=== PATIENT | female | born 1985 | race Caucasian/White ===

== ENCOUNTER 2020-04-18 10:18 | Day surgery (SDC) | payer BC, SELFPAY ==
--- NOTE | 2020-04-16 13:57 | HP.PCM_ITS ---
History and Physical Date of Admission: 04/18/20 PATIENT NAME: Jena Escalante. : 1985 ? DIAGNOSIS:? Superior mediastinal mass - Hodgkin's lymphoma - need for portacath for chemotherapy \ HPI:?This is a 35-year-old female presenting with 1 year history of unexplained cough and neck swelling. ?She has noticed increased swelling in her neck for the last several months. ?She has no hoarseness, dysphagia. ?She has a chronic nonproductive cough but no shortness of breath or chest pain. ?She has no fever, chills, night sweats, or unexplained weight loss. ?She has history of chronic fatigue. ?She does not smoke or drink alcohol. ?She denies frequent or recurrent infections. ?She denied double vision, headaches, or muscle weakness.? ? Patient underwent US thryoid on 03/16 which showed?Prominent mass inferior to both lobes of the thyroid possibly lipoma or other fat-containing lesion. ?Other considerations include complex cyst such as a cystic hygroma. ?Hypoechoic hypovascular solid mass also in differential. ?Recommend correlation with contrast-enhanced CT of neck.? ? CT scan of the neck with contrast suggests a thymic mass in the upper mediastinum with involvement of vasculature. ?She was referred to Dr. Faria last week for a needle biopsy of the thymic mass. ?She was seen earlier this week for further evaluation and treatment for possible thymoma or lymphoma. ? Interim history: Biopsy came back as classic Hodgkin lymphoma. Patient had history of coughing and mild dysphagia for close to a year. However, she has no chest pain, shortness of breath or B symptoms. ? ? FINAL DIAGNOSIS Needle core biopsy, neck mass: - Classic Hodgkin lymphoma, nodular sclerosis type. SO/td 04/04/2020 COMMENT Histologic sections demonstrate an abnormal inflammatory infiltrate composed of lymphocytes, eosinophils, histiocytes, and large pleomorphic, multinucleated cells consistent with Hodgkin/Flaco-Dominga cells. Mummified forms are also identified. There is background dense fibrosis. Immunohistochemistry is performed. The large cells are positive for CD30 and weakly positive for PAX5, and negative for CD15, CD45, ALK1, granzyme B, and CD15. CD3 and CD20 highlight scattered small T and B lymphocytes, respectively. The large cells are negative for CD20. BRITT in-situ hybridization is negative. PAST MEDICAL HISTORY Enlarged thyroid ? Obesity (BMI 30.0-34.9) ? Hodgkin's lymphoma ? ? PAST SURGICAL HISTORY ? TUBAL LIGATION ? 2010 Denies history of bone fractures ? ? MEDICATIONS: denies ? ? ALLERGIES: Patient has no known allergies. ? PERSONAL HISTORY: Scial History Tobacco Use ? Smoking status: Never Smoker ? Smokeless tobacco: Never Used Substance Use Topics ? Alcohol use: Not Currently ? ? Frequency: Never ? ? Drinks per session: Patient refused ? ? Binge frequency: Never ? Drug use: Never FAMILY HISTORY ? Cancer Mother ? ? ovarian or cervical - more likely cervical ? Hypertension Father ? ? Cancer Paternal Grandmother ? ? throat ? Diabetes Paternal Grandfather ? ? Diabetes Niece ? ? REVIEW OF SYSTEMS: CONSTITUTIONAL: ?No fevers, chills, nightsweats, or?unintended weight loss?+?mod erate fatigue HEENT: ?Denies frequent or severe heaches, nasal congestion/sinus symptoms, problematic allergy problems. EYES: ?No diplopia or blurry vision. NECK:?Increased swelling CARDIOVASCULAR: ?No chest pain, dyspnea, palpitations, orthopnea, PND, ankle edema. PULM: ?No dyspnea, unexplained cough. GI: ?No dysphagia/odynophagia, problematic reflux, constipation, diarrhea, changes in stool habits, hematochezia, melena. : ?No new urinary complaints, including dysuria, gross hematuria or pyuria. NEURO: ?No new balance problems, peripheral weakness/paresthesias or numbness of concern. No?Myasthenia gravis symptoms. MUSC-SKEL: ?No new joint pain, swelling, or erythema. PSY: ?No concerns regarding depression, anxiety or panic. INTEGUMENTARY: ?No new skin changes (rash, new or changing mole, new growth) ? PHYSICAL EXAMINATION:?35-year-old lady in no acute distress. BP 121/72 Pulse 99 Temp (Src) 97.9 (Temporal) Ht 5' 4.75[Ht verified with Adele Phillips RN[ (1.65m) Wt 178 lb (80.7kg) LMP 02/23/2020 BMI 29.84 kg/(m^2).? HEENT: Head is normocephalic, atraumatic. Sclerae white, conjunctivae pink. PEERL. EOMs are intact. Oropharynx is benign. NECK:?Supple,?enlarged thymic mass in the lower neck. LYMPHATICS: There is no palpable adenopathy in the neck, supraclavicular region, axillae, or groin. LUNGS: Lungs are clear to percussion and auscultation. HEART: Heart is normal without murmurs, gallops, or rubs. ABDOMEN: Soft and nontender without organomegaly. No masses can be palpated. EXTREMITIES: Are without edema. NEUROLOGIC: Exam is physiologic,?cranial nerves II to XII intact. ?No sensorimotor deficits ? ASSESSMENT:?35-year-old female with a lower cervical superior mediastinal mass,?consistent with classic Hodgkin lymphoma.??Clinical stage IIA with bulky disease and anemia. ? PLAN:? Patient is here for portacath placement. The procedure has been explained to her. She has been counseled as to the risks of the procedure, including but not limited to: infection, bleeding, injury to any blood vessels/nerves, thromboses of the blood vessels, line sepsis, injury to the lungs such as hemothorax or pneumothorax, inability to place the portacath, wound infection, non functioning of the port, etc. - she understands. The patient was offered a surgery/procedure. The provider and patient have discussed in detail the risk of exposure to and/or potential harm posed by the COVID-19 virus with having a surgery/procedure at this time versus the risk of delaying the surgery/procedure. It is not possible to know either the risk of delaying the surgery or procedure or chance of getting an infection with perfect accuracy, but a joint decision was made between the patient and the provider to proceed at this time with the scheduled surgery/procedure. She wishes to proceed. I have answered all her questions and she has no further questions.
[2020-04-18] VITALS (8 sets, daily range): BP systolic 109–132; BP diastolic 47–79; PULSE 90–111; RESP 16–18; TEMP 36.9–37.6; O2SAT 96–100; BMI 30.8
[2020-04-18] MEDS: Lactated Ringers 1,000 ML 75 ML IV (10:59)
[2020-04-18] MEDS: Cefazolin 2 GM in 0.9% Normal Saline 100 ML IV (11:47)
[2020-04-18] MEDS: Lidocaine 1% /Epi 1:100 (20ml) 20 ML Vial ×2 (12:04→12:15)
--- NOTE | 2020-04-18 12:26 | OP.PCM_ITS ---
Report of Operation Date of Procedure: 04/18/20 Pre-Operative Diagnosis: Hodgkins lymphoma with large mediastinal mass Post-Operative Diagnosis: same Surgery/Procedure Performed:: attempted access for placement of portacath Description of Surgical Findings:: SVC partial obstruction, could not advance wire into SVC Type of Anesthesia:: Local MAC Anesthesiologist: Keith Rehman Specimen's removed: none Estimated Blood Loss (mL): < 10 ml Fluids Replaced: 700 ml RL Description of Procedure: After informed consent was given, the patient was brought to the Operating Room. Appropriate time out protocol was followed. The patient was then placed in the supine position. The patient was then given IV conscious sedation for anesthesia. The patient?s upper chest and neck were then prepped with a surgical skin preparation and sterile surgical drapes were placed. After proper landmarks were ascertained, the skin at the upper right chest area was then infiltrated with 1% xylocaine with epinephrine. A needle trocar was then inserted into the right subclavian vein and there was good aspiration of venous blood. A wire was then threaded into the needle trocar however, it did not seem to advance well. Under fluoroscopy the wire could not be advanced into the superior vena cava (SVC) despite multiple attempts. Therefore the wire and needle trocar were removed and pressure applied to the area. The ultrasound machine was then used for real time imaging. The US transducer was used to i dentify for the right internal jugular vein. It was visualized. The skin and subcutaneous tissues were infiltrated with local anesthetic. A needle trocar was inserted into the right internal jugular vein via US guidance. There was good aspiration of venous blood. However, once again, under fluoroscopy, it was noted that the wire could not be advanced into the SVC. The wire and needle trocar were removed and pressure applied to the site. An attempt was then made with the left subclavian approach. The skin and subcutaneous tissues of the upper left chest area was infiltrated with local anesthetic. The needle trocar was inserted into the left subclavian vein. There was good aspiration of venous blood. A wire was inserted into the needle trocar and was seen to enter the right subclavian vein under fluoroscopy. Advancing the wire was done under fluoroscopy. With retraction and advancement of the wire, it was noted to be advanced in the right internal jugular vein. Therefore given the above, the mass must be partially occluding the SVC, thus precluding placement of a catheter in this location. At this point the procedure was aborted. Pressure was applied to all attempted insertion sites. Steristrips applied to the needle trocar entrance sites. The patient was brought to the Recovery Room in stable condition - Complications no placement of portacath - Admit VTE Documentation VTE Present on Admission: Yes VTE Mechan Device Prophylaxis: SCD's
--- NOTE | 2020-04-18 12:28 | RAD_ITS ---
We are attempting to reach an attending provider to discuss findings. An addendum with communication details will be sent when the communication is complete. EXAM DESCRIPTION: PORTABLE AP CHEST CLINICAL HISTORY: 35 years Female, Possible pneumothorax, attempted line placement. Possible pneumothorax, attempted line placement. COMPARISON: Previous chest obtained on 08/12/2010 FINDINGS: The thorax is intact. The heart appears to be within normal limits. Now noted is significant widening superior mediastinum. In view of the attempted line placement this most likely represents a large mediastinal hematoma. Arterial injury cannot be completely excluded and a contrast enhanced CT of the chest is recommended for further evaluation.. The lungs appear to be well areated without evidence of pneumonic consolidation or pleural effusion. RAD/CXR for Line Placement IMPRESSION: Marked widening of the superior mediastinum suspicious for a mediastinal hematoma. Because of vascular injury cannot be completely excluded a CT angiogram would be helpful for further evaluation. Electronically Signed: Yaron Foley, at 14:24 EST Tel , Service support ,
--- NOTE | 2020-04-18 12:43 | DCINST_ITS ---
Discharge Diet: No Restrictions Discharge Activity: Return to Normal Activity, May not drive while taking narcotic pain medications. Allergies/Adverse Reactions: Allergies No Known Allergies Allergy (Verified 04/12/20 14:46) Medications to take at Discharge Iron Polysaccharide Complex [Ferrex 150] 150 mg PO BID 04/12/20 Hydrocodone Bitart/Apap 5-325 [[place] 5MG-325MG] 1 tablet PO Q8H PRN PRN 2 Days #6 tablet 04/18/20 The following prescriptions were given: Hydrocodone Bitart/Apap 5-325 [[place] 5MG-325MG] 1 tablet PO Q8H PRN PRN 2 Days #6 tablet PRN Reason: Pain Transmission Status: Sent to [facility] Primary Care Physician: Michael Green MD [Primary Care Provider] - Test Results: Test results from this visit will be discussed in further detail at your follow- up appointment, if applicable.
--- NOTE | 2020-04-18 14:32 | PN_ITS ---
Progress Note I have reviewed the CXR - no evidence of pneumothorax which is what I am concerned about The patient has a known mediastinal mass for which pathology found to be Hodgkin's lymphoma - a chest CT was obtained at [facility] for which the radiologist at [facility] has no access to and therefore cannot compare images. However, I have reviewed the images and compared the present CXR to the chest CT scan obtained at [facility] and there are no changes STROKE Vital Signs/Narrative: Vital Signs Temp Pulse Resp BP Pulse Ox 04/18/20 12:56 98.4 F 92 16 123/56 H 100 04/18/20 12:55 95 16 122/59 H 100 04/18/20 12:50 103 H 16 122/59 H 100 04/18/20 12:45 90 16 115/54 L 100 04/18/20 12:41 105 H 16 109/47 L 100 04/18/20 12:36 98.4 F 111 H 16 130/78 H 100 04/18/20 10:54 99.7 F H 94 16 132/79 H 96
== END 2020-04-18 14:36 | disposition home or self-care (01) ==
LOC: SDC 10:19 → AC 10:20
PROVIDERS: PCP Family Medicine; Referring Provider Surgery; Visit Provider Surgery
PROC: (CPT 36561; principal; 2020-04-18 11:30)
DX: C81.11 Nodular sclerosis Hodgkin lymphoma, lymph nodes of head, face, and neck (principal); D64.9 Anemia, unspecified; E66.9 Obesity, unspecified; Z68.29 Body mass index [BMI] 29.0-29.9, adult; I87.1 Compression of vein
CPT/HCPCS: 00532; 36561; 71045; 77001; J7050; J7120; C1788

== ENCOUNTER → 2020-04-27 08:48 | Outpatient (CLI) | payer BC, SELFPAY ==
[2020-04-18 10:54] VITALS: BMI 30.8
[2020-04-27 08:56] VITALS: BP 115/62; PULSE 86; RESP 14; TEMP 37.2; O2SAT 99; BMI 30.7
== END ==
PROVIDERS: PCP Family Medicine; Visit Provider Internal Medicine Hematology & Oncology
DX: Z45.2 Encounter for adjustment and management of vascular access device (principal)

== ENCOUNTER → 2020-05-12 08:49 | Outpatient (CLI) | payer BC, SELFPAY ==
[2020-04-27 08:56] VITALS: BMI 30.7
== END ==
PROVIDERS: PCP Family Medicine; Referring Provider Internal Medicine Hematology & Oncology; Visit Provider Internal Medicine Hematology & Oncology
DX: Z45.2 Encounter for adjustment and management of vascular access device (principal); C81.90 Hodgkin lymphoma, unspecified, unspecified site

== ENCOUNTER → 2020-05-25 08:59 | Outpatient (CLI) | payer BC, SELFPAY ==
[2020-04-27 08:56] VITALS: BMI 30.7
--- NOTE | 2020-05-25 09:50 | NURSING ---
# 20g 1 Peripheral IV placed with ultrasound guidance to left cephalic vein on second attempt. Site without active bleeding or hematoma. Pt tolerated well.
== END ==
PROVIDERS: PCP Family Medicine; Referring Provider Internal Medicine Hematology & Oncology; Visit Provider Internal Medicine Hematology & Oncology
DX: Z45.2 Encounter for adjustment and management of vascular access device (principal); C81.90 Hodgkin lymphoma, unspecified, unspecified site
CPT/HCPCS: 36556; 76937

== ENCOUNTER → 2020-06-08 09:00 | Outpatient (CLI) | payer BC, SELFPAY ==
[2020-04-27 08:56] VITALS: BMI 30.7
== END ==
PROVIDERS: PCP Family Medicine; Referring Provider Internal Medicine Hematology & Oncology; Visit Provider Internal Medicine Hematology & Oncology
DX: C81.90 Hodgkin lymphoma, unspecified, unspecified site (principal)

== ENCOUNTER → 2020-06-22 09:39 | Outpatient (CLI) | payer BC, SELFPAY ==
[2020-04-27 08:56] VITALS: BMI 30.7
--- NOTE | 2020-06-22 09:47 | NURSING ---
PT ARRIVED. [employer], HERE WITH PT. SET UP FOR US IV START IN [facility] [place]. PT'S MOTHER AT BEDSIDE.
== END ==
PROVIDERS: PCP Family Medicine; Visit Provider Internal Medicine Hematology & Oncology
DX: C81.90 Hodgkin lymphoma, unspecified, unspecified site (principal)

== ENCOUNTER → 2020-07-07 09:11 | Outpatient (CLI) | payer BC, SELFPAY ==
[2020-04-27 08:56] VITALS: BMI 30.7
--- NOTE | 2020-07-07 10:18 | NURSING ---
Saw Pt in [facility] to place PIV for Chemo. Had difficulty accessing bilateral cephalic veins in forearms. Sites without active bleeding or hematoma. Procedure stopped. Pt tolerated well but does have a lot of anxiety regarding IV access. Revisited conversation about have a central line placed to continue last 8 treatments. Pt voiced concerns about complications with central lines. Discussed in length risks and benefits to having a central line placed for chemo. She said she will think about it but that it might be time.
== END ==
PROVIDERS: PCP Family Medicine; Referring Provider Internal Medicine Hematology & Oncology; Visit Provider Internal Medicine Hematology & Oncology
DX: Z45.2 Encounter for adjustment and management of vascular access device (principal)

== ENCOUNTER 2023-10-07 15:22 | Emergency (ER) | payer OTHER, SELFPAY ==
[2023-10-07] VITALS (16 sets, daily range): BP systolic 125–154; BP diastolic 54–91; PULSE 111–211; RESP 13–27; TEMP 36.2–36.4; O2SAT 96–100; BMI 44.0
[2023-10-07] MEDS: Adenosine 6 MG/2 ML Syringe IV (15:36)
[2023-10-07] MEDS: 0.9% Normal Saline (1000mL) 1,000 ML 150 ML IV (15:40)
--- NOTE | 2023-10-07 15:40 | EDS_ITS ---
HPI History of Present Illness Chief Complaint: Palpitations Detail of Chief Complaint: Palpitations/anxiety Narrative Narrative: Patient presents with palpitations that started after coming back from lunch around 2:15 PM. Feels like heart racing and feels anxious. Denies any chest pain. She denies recent travel or surgery. Tells me she had a similar episode in July of this year but resolved after about 4 hours. She denies recent travel or surgery. No medical history otherwise. No family history of heart disease. Her mother has mitral valve prolapse. [facility] Medical History (Updated 10/07/23 @ 17:[address] Reddy Li, DO) Hodgkins lymphoma Home Medications ?Medication ?Instructions ?Recorded ?Last Taken ?Type Iron Polysaccharide Complex 150 mg PO BID supplement 04/12/20 Unknown History [Ferrex 150] metoprolol tartrate 25 mg tablet 25 mg PO BID #60 tabs 10/07/23 Unknown Rx Allergy/AdvReac Type Severity Reaction Status Date / Time No Known Allergies Allergy Verified 04/27/20 08:56 Surgical History (Updated 10/07/23 @ 15:27 by Rosemary Yepez) H/O tubal ligation Social History Smoking Status: Never smoker ROS ROS ED Review of Systems ROS Unobtainable: other Constitutional Constitutional ED: Reports lethargy; Denies chills, fever(s), sweats or weight loss Eyes Eyes: Denies blurry vision, change in vision or diplopia ENT ENT ED: Denies rhinorrhea or sore throat Cardiovascular Cardiovascular: Reports palpitations and racing heartbeat; Denies chest pain or orthopnea Respiratory/Chest Respiratory/Chest: Reports dyspnea and dyspnea on exertion; Denies cough, orthopnea or sputum Gastrointestinal Gastrointestinal: Denies abdominal pain, diarrhea, nausea or vomiting Genitourinary Genitourinary ED: Denies dysuria, hematuria or urinary frequency Musculoskeletal Musculoskeletal: Denies arthralgias, back pain, myalgias or neck pain Integumentary Denies abscess, Abrasions or rash Neurologic Neurologic: Denies headache(s) or weakness Psychiatric Psychiatric: Denies anxiety, depression or suicidal thoughts Endocrine Endocrinology: Denies polydipsia, polyphagia or polyuria Hematologic/Lymphatic Hematologic/Lymphatic: Denies easy bleeding, easy bruising or lymphadenopathy Allergic/Immunologic Allergic/Immunologic ED: Denies mouth swelling, tongue swelling or urticaria EXAM Physical Exam Const Vital Signs: 10/07/23 15:22 10/07/23 15:23 10/07/23 15:36 Temperature 97.2 F L Temperature Source Temporal Pulse Rate 204 H 209 H 211 H Respiratory Rate 25 H 20 H Blood Pressure 128/91 H Blood Pressure Mean 103 Pulse Ox 99 99 Oxygen Delivery Method Room Air Room Air 10/07/23 15:37 10/07/23 16:19 Temperature Temperature Source Pulse Rate 133 H 112 H Respiratory Rate 16 13 Blood Pressure 128/91 H Blood Pressure Mean 103 Pulse Ox 96 97 Oxygen Delivery Method Room Air Room Air Positive well nourished and well developed General Appearance ED: well developed and NAD HEENT Reports TM's clear and moist mucous membranes normocephalic and atraumatic; Negative for trauma or tenderness Tympanic Membrane ED: Yes TM's clear Eyes PERRL and EOMs intact bilaterally General Eye ED: Negative for pale conjunctiva or scleral icterus Neck no lymphadenopathy, supple and no JVD General: Negative for tenderness Chest Wall inspection of chest normal and palpation of chest normal Chest: Negative for tenderness Resp normal respiratory effort and clear to auscultation bilaterally Effort and Inspection: Negative for respiratory distress or pain with movement Auscultation: Negative for rhonchi, wheezes or diminished lung sounds Cardio regular rhythm, S1 normal heart sound, S2 normal heart sound and no murmurs; Negative for regular rate Rate: tachycardic Peripheral Pulses: pulses 2+ throughout GI normal to inspection, nondistended, normoactive bowel sounds, soft to palpation, non-tender, non-distended and no masses Back/Spine no CVA tenderness and no thoracic nor lumbar tenderness Extremity normal to inspection General Extremety ED: Negative for edema General Extremity: Negative for edema Neuro oriented x3, CN's II-XII intact bilaterally, no sensory deficits noted and gait normal Sensorium / Orientation: awake, alert, oriented to person, oriented to place and oriented to time Motor Exam: strength 5/5 throughout and strength abnormal Psych mental status grossly normal Skin no rashes or lesions noted and no wounds MDM MDM MDM Narrative Medical decision making narrative: Patient presents not feeling well via EMS. There was a prehospital EKG that showed SVT. Patient was a difficult IV stick but eventually using ultrasound nursing staff able to obtain an IV. Initially I tried Valsalva maneuvers unsuccessfully. She was then given adenosine 6 mg IV push and patient returned to a sinus tachycardia. Will obtain basic labs as well as TSH and repeat EKG. CBC with differential count 11.2 with hemoglobin 13.2 and platelet count of 297. Chemistries unremarkable. TSH normal at 2.24. Repeat EKG after SVT resolved showed sinus tachycardia with a rate of [address] changes. Case discussed with cardiology who asked that we start patient on metoprolol and outpatient follow-up. Spoke with Dr. Hill. Lab Data Attestation: I reviewed the patient's lab results. Labs: Laboratory Results - last 24 hr 10/07/23 15:46 WBC 11.2 H RBC 4.49 Hgb 13.2 Hct 40.7 MCV 90.6 MCH 29.4 MCHC 32.4 RDW Std Deviation 45.4 H RDW Coeff of [place] 13.5 Plt Count 297 MPV 12.5 H Immature Gran % (Auto) 0.400 Neut % (Auto) 68.4 Lymph % (Auto) 21.7 Coleman % (Auto) 7.3 Eos % (Auto) 1.8 Baso % (Auto) 0.4 Absolute Neuts (auto) 7.7 Absolute Lymphs (auto) 2.44 Nucleated RBC % 0 Sodium 135 L Potassium 4.7 Chloride 107 Carbon Dioxide 24.0 Anion Gap 4 L BUN 14 Creatinine 1.05 H Estim Creat Clear Calc 83.74 Est GFR (MDRD) Af Amer 75 Est GFR (MDRD) Non-Af 62 BUN/Creatinine Ratio 13.3 Glucose 129 H Calcium 9.2 Troponin I High Sens 10 TSH 2.24 EKG Initial EKG: Attestation: I personally reviewed and interpreted this EKG as follows: Comments: Supraventricular tachycardia with rate of [address] changes Repeat EKG after SVT broke shows sinus tachycardia with rate of [address] changes Discharge Plan Triage Chief Complaint: Palpitations ED Provider: Reddy Li Dx/Rx/DC Orders Clinical Impression: Paroxysmal supraventricular tachycardia Instructions: ED Understanding Supraventricular Tachycardia (SVT) Prescriptions: New metoprolol tartrate 25 mg tablet 25 mg PO BID Qty: 60 0RF No Action Iron Polysaccharide Complex [Ferrex 150] 150 MG capsule 150 mg PO BID Primary Care Provider: Michael Green Referrals: Heather Hill MD [Med Staff - Active Staff] - 3-5 Days Michael Green MD [Primary Care Provider] - Print Language: Welsh Disposition Disposition: Home, Self Care
[2023-10-07 16:27] LABS: Absolute Lymphocyte Count 2.44 X10^3/uL (0.83-4.51); Absolute Neutrophil Count 7.7 X10^3/uL (2.0-7.7); Basophil# 0.04 X10^3/uL; Basophil% 0.4 % (0-1); Eosinophils% 1.8 % (0-5); Hematocrit 40.7 % (37-47); Hemoglobin 13.2 g/dL (12.0-15.0); Lymphocyte # 2.44 X10^3/ul (0.83-4.51); Lymphocyte % 21.7 % (19-41); Mean Corp Hgb Conc 32.4 g/dL (32-36); Mean Corpuscular Hgb 29.4 pg (27.0-32.0); Mean Corpuscular Volume 90.6 fL (81-99); Mean Platelet Vol. 12.5 fl (6.2-12.0); Monocyte# 0.82 X10^3/uL; Monocyte% 7.3 % (0-10); NRBC Flagged by Analyzer 0 % (0-5); Neutrophil % 68.4 % (47-70); Platelet Count 297 K/mm3 (150-450); RBC Distribution Width CV 13.5 % (11.6-14.6); RBC Distribution Width SD 45.4 fl (35.1-43.9); Red Blood Count 4.49 M/mm3 (4.2-5.4); White Blood Count 11.2 K/mm3 (4.4-11.0)
[2023-10-07 17:01] LABS: Anion Gap 4 (5-15); BUN 14 mg/dL (7-18); BUN/Creat Ratio 13.3 RATIO (10-20); Calcium,Total 9.2 mg/dL (8.5-10.1); Chloride 107 mmol/L (98-107); Creatinine, Serum 1.05 mg/dL (0.55-1.02); EST Glomerular Filtration Rate 62 mL/min (>60); Est Glom Filt Rate - Afr Amer 75 mL/min (>60); Estimated Creatinine Clearance 83.74 ml/min; Glucose 129 mg/dL (74-106); Potassium 4.7 mmol/L (3.5-5.1); Sodium Level 135 mmol/L (136-145); Thyroid Stim Hormone (TSH) 2.24 uIU/mL (0.358-3.74); Troponin-I HS 10 pg/mL (3.0-54.0)
[2023-10-07] MEDS: Metoprolol Tartrate 25 MG Tablet PO (18:14)
== END 2023-10-07 18:17 | disposition home or self-care (01) ==
PROVIDERS: Emergency Provider Emergency Medicine; PCP Family Medicine; Visit Provider Emergency Medicine
DX: I47.10 Supraventricular tachycardia, unspecified (principal); Z85.72 Personal history of non-Hodgkin lymphomas
CPT/HCPCS: 80048; 84443; 84484; 85025; 93005; 96361; 96374; 99283; J0153

== ENCOUNTER 2025-05-17 12:04 | Emergency (ER) | payer OTHER, SELFPAY ==
[2025-05-17] VITALS (23 sets, daily range): BP systolic 62–119; BP diastolic 31–77; PULSE 105–213; RESP 14–21; TEMP 36.2; O2SAT 96–100; BMI 47.0
[2025-05-17] MEDS: Adenosine 6 MG/2 ML Syringe 12 MG IV (12:15)
--- NOTE | 2025-05-17 12:21 | EKG12_ITS ---
Test Reason : REPEAT Blood Pressure : */* mmHG Vent. Rate : 105 BPM Atrial Rate : 105 BPM P-R Int : 150 ms QRS Dur : 78 ms QT Int : 380 ms P-R-T Axes : 51 -10 24 degrees QTcB Int : 502 ms Sinus tachycardia Prolonged QT Abnormal ECG Confirmed by Mckay Connell ([id number]), non linear editor ABEBA ROQUE ([id number]) on 05/20/2025 8:18:02 AM Referred By: Confirmed By: Mckay Connell
[2025-05-17 12:32] LABS: Hematocrit 42.6 % (37-47); Hemoglobin 13.9 g/dL (12.0-15.0); Immature Granulocytes Count 0.040 X10^3/uL (0.0-0.0); Mean Corp Hgb Conc 32.6 g/dL (32-36); Mean Corpuscular Volume 91.0 fL (81-99); Mean Platelet Vol. 12.9 fl (6.2-12.0); NRBC Flagged by Analyzer 0 % (0-5); Platelet Count 279 K/mm3 (150-450); RBC Distribution Width CV 13.3 % (11.6-14.6); RBC Distribution Width SD 45.0 fl (35.1-43.9); Red Blood Count 4.68 M/mm3 (4.2-5.4); White Blood Count 14.6 K/mm3 (4.4-11.0)
--- NOTE | 2025-05-17 12:39 | EKG12_ITS ---
Test Reason : HIGH HR Blood Pressure : */* mmHG Vent. Rate : 214 BPM Atrial Rate : * BPM P-R Int : * ms QRS Dur : 78 ms QT Int : 210 ms P-R-T Axes : * -9 165 degrees QTcB Int : 396 ms Critical Test Result: High HR Supraventricular tachycardia Nonspecific ST and T wave abnormality Abnormal ECG Confirmed by Mckay Connell ([id number]), publishing editor ABEBA ROQUE ([id number]) on 05/20/2025 8:18:20 AM Referred By: Confirmed By: Mckay Connell
[2025-05-17 12:52] LABS: Anion Gap 16 (7-18); BUN 15 mg/dL (4-19); BUN/Creat Ratio 11.0 RATIO (10-20); Calcium,Total 9.0 mg/dL (7.6-11.0); Carbon Dioxide 16.3 mmol/L (20.0-29.0); Chloride 106 mmol/L (96-106); Estimated Creatinine Clearance 67.95 ml/min (50-250); Glucose 121 mg/dL (70-99); Magnesium 2.1 mg/dL (1.5-2.2); Potassium 3.8 mmol/L (3.5-5.1)
--- NOTE | 2025-05-17 13:56 | EDS_ITS ---
HPI History of Present Illness Chief Complaint: Palpitations Informant: patient Narrative Narrative: 40-year-old female presenting to the emergency room for evaluation of SVT. Patient has a history of SVT was following with a agricultural equipment sales engineer in [place]. At 1 point she was on metoprolol but is not currently taking it. She is on no antiarrhythmics. She states she was at work today at around 930 10:00 when she began to feel very lightheaded and her heart rate was noted to be greater than 200. 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 She denies any pain with this. She denies any significant caffeine intake today. [facility] Medical History Hodgkins lymphoma Home Medications ?Medication ?Instructions ?Recorded ?Last Taken ?Type metoprolol tartrate 25 mg tablet 25 mg PO BID #60 tabs 05/17/25 Unknown Rx Allergy/AdvReac Type Severity Reaction Status Date / Time No Known Allergies Allergy Verified 05/17/25 12:08 Surgical History H/O tubal ligation Social History Smoking Status: Never smoker ROS ROS ED ROS Narrative Generalized weakness Constitutional Constitutional ED: Denies chills or weight loss Eyes Eyes: Denies change in vision or diplopia ENT ENT ED: Denies ear pain, rhinorrhea or sore throat Cardiovascular Cardiovascular: Reports racing heartbeat; Denies chest pain, orthopnea or palpitations Respiratory/Chest Respiratory/Chest: Denies cough, dyspnea or orthopnea Gastrointestinal Gastrointestinal: Denies abdominal pain, diarrhea, nausea or vomiting Genitourinary Genitourinary ED: Denies dysuria, hematuria or urinary frequency Musculoskeletal Musculoskeletal: Denies arthralgias or myalgias Integumentary Denies abscess or rash Neurologic Neurologic: Denies headache(s) or weakness Psychiatric Psychiatric: Denies anxiety, depression, suicidal ideation or suicidal thoughts Endocrine Endocrinology: Denies polydipsia, polyphagia or polyuria Allergic/Immunologic Allergic/Immunologic ED: Denies mouth swelling, tongue swelling or urticaria EXAM Physical Exam Const Vital Signs: 05/17/25 12:04 05/17/25 12:04 05/17/25 12:12 Temperature 97.2 F L Temperature Source Temporal Pulse Rate 213 H 205 H Respiratory Rate 16 Blood Pressure 100/69 62/31 L Blood Pressure Mean 79 41 Pulse Ox 98 Oxygen Delivery Method 05/17/25 12:14 05/17/25 12:15 05/17/25 12:17 Temperature Temperature Source Pulse Rate 211 H 212 H 123 H Respiratory Rate 18 21 H 16 Blood Pressure 82/55 L 82/55 L Blood Pressure Mean 65 64 Pulse Ox Oxygen Delivery Method Room Air 05/17/25 12:18 05/17/25 12:19 05/17/25 12:21 Temperature Temperature Source Pulse Rate 116 H 109 H 105 H Respiratory Rate 16 17 18 Blood Pressure 105/68 105/68 116/75 Blood Pressure Mean 80 80 86 Pulse Ox 97 99 99 Oxygen Delivery Method Room Air 05/17/25 12:24 05/17/25 12:27 05/17/25 12:30 Temperature Temperature Source Pulse Rate 106 H 106 H 108 H Respiratory Rate 15 16 16 Blood Pressure 119/75 110/70 114/71 Blood Pressure Mean 87 82 82 Pulse Ox 98 96 97 Oxygen Delivery Method 05/17/25 12:33 05/17/25 12:40 05/17/25 12:42 Temperature Temperature Source Pulse Rate 107 H 110 H 108 H Respiratory Rate 17 20 H 17 Blood Pressure 110/66 111/70 111/67 Blood Pressure Mean 77 82 80 Pulse Ox 98 98 98 Oxygen Delivery Method 05/17/25 12:45 05/17/25 12:48 05/17/25 12:51 Temperature Temperature Source Pulse Rate 108 H 107 H 107 H Respiratory Rate 14 16 Blood Pressure 109/71 108/67 114/71 Blood Pressure Mean 82 79 85 Pulse Ox 97 99 99 Oxygen Delivery Method 05/17/25 12:54 05/17/25 12:57 05/17/25 13:00 Temperature Temperature Source Pulse Rate 108 H 108 H 110 H Respiratory Rate 15 15 18 Blood Pressure 116/73 117/76 113/74 Blood Pressure Mean 86 87 87 Pulse Ox 98 100 100 Oxygen Delivery Method 05/17/25 13:03 05/17/25 13:06 05/17/25 13:20 Temperature 97.2 F L Temperature Source Pulse Rate 107 H 108 H 108 H Respiratory Rate 16 17 17 Blood Pressure 118/77 92/65 92/65 Blood Pressure Mean 89 73 74 Pulse Ox 100 98 98 Oxygen Delivery Method Positive well nourished and well developed General Appearance ED: well developed HEENT Reports normocephalic, head/scalp atraumatic and moist mucous membranes Eyes PERRL and EOMs intact bilaterally Neck no lymphadenopathy, supple and no JVD Resp normal respiratory effort and clear to auscultation bilaterally Cardio regular rate, regular rhythm and no murmurs Rate: tachycardic GI normal to inspection, nondistended, normoactive bowel sounds and non-tender Palpation: soft Back/Spine no CVA tenderness and normal ROM Extremity normal to inspection General Extremety ED: Negative for edema General Extremity: Negative for edema Neuro oriented x3 and CN's II-XII intact bilaterally Sensorium / Orientation: alert Motor Exam: strength 5/5 throughout Psych mental status grossly normal Mood & Affect: Negative for depressed or tearful Skin no rashes or lesions noted and no wounds MDM MDM MDM Narrative Medical decision making narrative: Differential diagnosis includes SVT PAT AVNRT atrial fibrillation atrial flutter electrolyte abnormalities anemia Patient did not convert with blowing into a syringe maneuver. Patient was unable to take a deep breath and blow for longer than 5 seconds. While her blood pressure was low she was mentating normally. She was not diaphoretic. She received 12 mg of adenosine as the only IV site available was in the hand. This resulted in conversion to a sinus tachycardia at a rate of around 108. After conversion the patient was allowed to recover repeat EKG shows a sinus tachycardia at 105. I do not see preexcitation or prolonged QT. Patient will be restarted on her metoprolol. She will follow-up with a new agricultural equipment sales engineer. History & Record Review Discussion w/independent historian: Patient and Family Lab Data Attestation: I reviewed the patient's lab results. Labs: Laboratory Results - last 24 hr 05/17/25 12:09 WBC 14.6 H RBC 4.68 Hgb 13.9 Hct 42.6 MCV 91.0 MCH 29.7 MCHC 32.6 RDW Std Deviation 45.0 H RDW Coeff of [place] 13.3 Plt Count 279 MPV 12.9 H Immature Gran % (Auto) 0.300 Neut % (Auto) 72.6 H Lymph % (Auto) 18.1 L Sharkey % (Auto) 7.6 Eos % (Auto) 1.0 Baso % (Auto) 0.4 Absolute Neuts (auto) 10.6 H Absolute Lymphs (auto) 2.64 Nucleated RBC % 0 Sodium 138 Potassium 3.8 Chloride 106 Carbon Dioxide 16.3 L Anion Gap 16 BUN 15 Creatinine 1.32 H Estim Creat Clear Calc 67.95 Est GFR (MDRD) Non-Af 52 L BUN/Creatinine Ratio 11.0 Glucose 121 H Calcium 9.0 Magnesium 2.1 EKG Initial EKG: Attestation: I personally reviewed and interpreted this EKG as follows: Comments: Narrow complex SVT at a rate of 214 Follow-up EKG: Attestation: I personally reviewed and interpreted this EKG as follows: Comments: Sinus tachycardia ventricular rate of 105 bpm Discharge Plan Triage Chief Complaint: Palpitations ED Provider: Ayaz Louie Dx/Rx/DC Orders Clinical Impression: Sustained SVT, Acute hypotension Instructions: ED Understanding Supraventricular Tachycardia (SVT) Prescriptions: New metoprolol tartrate 25 mg tablet 25 mg PO BID Qty: 60 0RF Primary Care Provider: Michael Green Referrals: Michael Green MD [Primary Care Provider, Family Practice] Antonio Barney MD [Med Staff - Active Staff, Cardiology] - As soon as possible Print Language: Swedish Disposition Disposition: Home, Self Care Discharge Date/Time: 05/17/25 13:26
== END 2025-05-17 13:26 | disposition home or self-care (01) ==
PROVIDERS: Emergency Provider Emergency Medicine; PCP Family Medicine; Visit Provider Emergency Medicine
DX: I47.10 Supraventricular tachycardia, unspecified (principal); I95.9 Hypotension, unspecified; Z79.899 Other long term (current) drug therapy
CPT/HCPCS: 80048; 83735; 85025; 93005; 99284; J0153